=== PATIENT | male | born 1985 | race Caucasian/White ===

== ENCOUNTER 2019-11-19 09:59 | Emergency (ER) | payer OTHER, SELFPAY ==
[2019-11-19] MEDS ORDERED: HYDROCODONE/CHLORPHEN 5 ML/OSYR ONE (10:50)
--- NOTE | 2019-11-19 11:47 | RAD REPORT ---
EXAM DESCRIPTION: RAD - Chest Single View - 11/19/2019 11:34 am CLINICAL HISTORY: COUGH, recent positive COVID test COMPARISON: None TECHNIQUE: AP portable chest image was obtained 11/19/2019 11:34 am . FINDINGS: No focal masslike consolidation. No failure or volume overload. Patient may have some mini mal alveolar opacification in the left lung field. This is a very minimal finding and not definitive for pneumonia or a specific COVID-19 pneumonia. Heart and vasculature are normal. No measurable pleural effusion and no pneumothorax. No acute bony abnormality seen. No acute aortic findings suspected. IMPRESSION: No consolidation or mass. There is questionable minimal alveolar opacification in the mi d left lung field. Chest findings are not yet specific for a COVID-[address] chest imaging can be performed as wa rranted. This would be a more sensitive study for early alveolar pneumonia.
--- NOTE | 2019-11-19 12:03 | ER ---
Nurse's Notes [facility] Name: Yoseph Ryan Age: 34 yrs Sex: Male : 1985 Arrival Date: 11/19/2019 Time: 10:09 Bed 6 Private MD: Diagnosis: Coronavirus infection, unspecified Presentation: 11/18 10:25 Chief complaint: Patient states: Tested positive for COVID on Tuesday. Now reports ss that symptoms are getting worse. Increased SOB on exertion. Coronavirus screen: Patient reports a cough. Patient reports shortness of breath or difficulty breathing. Patient reports a measured and/or subjective temperature greater than 100.4F. Ebola Screen: Patient denies exposure to infectious person. Patient denies travel to an Ebola-affected area in the 21 days before illness onset. Initial Sepsis Screen: Does the patient meet any 2 criteria? HR > 90 bpm. Does the patient have a suspected source of infection? Yes: Productive cough/pneumonia. Risk Assessment: Do you want to hurt yourself or someone else? Patient reports no desire to harm self or others. Onset of symptoms was November 13, 2019. 10:25 Method Of Arrival: Ambulatory ss 10:25 Acuity: RUFINO 3 ss Historical: - Allergies: 10:27 No Known Allergies; ss - Immunization history:: Adult Immunizations up to date. - Social history:: Smoking status: Patient reports use of chewing tobacco. Screenin:45 Abuse screen: Denies threats or abuse. Denies injuries from another. Nutritional iw screening: No deficits noted. Tuberculosis screening: No symptoms or risk factors identified. Fall Risk None identified. Assessment: 10:45 General: Appears in no apparent distress. comfortable, Behavior is calm, cooperative. iw Pain: Denies pain. Neuro: Level of Consciousness is awake, alert, obeys commands, Oriented to person, place, time, situation, Moves all extremities. Full function. Cardiovascular: Patient's skin is warm and dry. Respiratory: Reports cough that is non-productive, Respiratory effort is even, unlabored, Respiratory pattern is regular, symmetrical. Derm: Skin is intact, is healthy with good turgor. Musculoskeletal: Range of motion: intact in all extremities. Vital Signs: 10:25 BP 120 / 78; Pulse 108; Resp 18; Temp 98.5(TE); Pulse Ox 97% on R/A; ss 10:46 BP 165 / 74; Pulse 92; Pulse Ox 97% on R/A; iw 10:49 BP 117 / 85; Pulse 96; Resp 18; Pulse Ox 97% ; sv ED Course: 10:09 Patient arrived in ED. fj1 10:18 Lavon Lopez NP is PHCP. pm1 10:18 Thomas Ybarra MD is Attending Physician. pm1 10:27 Triage completed. ss 10:27 Arm band placed on right wrist. ss 10:31 Vijaya Newton, RN is Primary Nurse. iw 10:45 Patient has correct armband on for positive identification. iw 11:35 Chest Single View XRAY In Process Unspecified. EDMS 12:14 No provider procedures requiring assistance completed. Patient did not have IV access iw during this emergency room visit. Administered Medications: 10:44 Drug: Tussionex Pennkinetic ER 5 ml Route: PO; iw Outcome: 12:02 Discharge ordered by MD. pm1 12:14 Discharged to home ambulatory. iw 12:14 Condition: good 12:14 Discharge instructions given to patient, Instructed on discharge instructions, follow up and referral plans. Demonstrated understanding of instructions, follow-up care, medications, Prescriptions given X 1. 12:15 Patient left the ED. iw Signatures: Dispatcher [employer] EDMS Lori Feldman RN RN Vijaya Newton RN RN Patricia Silva RN RN Lavon Lopez NP HISTORIC PRESERVATIONIST pm1 Ken Rubio fj1
--- NOTE | 2019-11-19 12:03 | EDPHYS ---
Physician Documentation [facility] Name: Yoseph Ryan Age: 34 yrs Sex: Male : 1985 Arrival Date: 11/19/2019 Time: 10:09 Bed 6 Private MD: ED Physician Thomas Ybarra HPI: 11/18 11:48 This 34 yrs old Male presents to ER via Ambulatory with complaints of COVID pm1 POS, SYMPTOMS ARE GETTING WORSE. 11:48 The patient or guardian reports cough, dry. Onset: The symptoms/episode began/occurred pm1 5 day(s) ago. Modifying factors: The symptoms are alleviated by nothing, the symptoms are aggravated by nothing. Associated signs and symptoms: Pertinent negatives: chest pain, ear ache, fever, nausea, sore throat, vomiting. The patient has not experienced similar symptoms in the past. The patient has not recently seen a physician. Patient tested positive for COVID. Patient with onset of cough on Tuesday and was tested on Tuesday. Reported productive cough initially that is now dry. He feels that he is coughing more times. Denies any shortness of breath at rest or exertion. Historical: - Allergies: 10:27 No Known Allergies; ss - Immunization history:: Adult Immunizations up to date. - Social history:: Smoking status: Patient reports use of chewing tobacco. ROS: 11:48 Constitutional: Negative for fever, chills, and weight loss, Eyes: Negative for injury, pm1 pain, redness, and discharge, ENT: Negative for injury, pain, and discharge, Neck: Negative for injury, pain, and swelling, Cardiovascular: Negative for chest pain, palpitations, and edema. 11:48 Abdomen/GI: Negative for abdominal pain, nausea, vomiting, diarrhea, and constipation, Back: Negative for injury and pain, MS/Extremity: Negative for injury and deformity, Skin: Negative for injury, rash, and discoloration, Neuro: Negative for headache, weakness, numbness, tingling, and seizure. 11:48 Respiratory: Positive for cough, Negative for shortness of breath, sputum production, wheezing. Exam: 11:48 Constitutional: This is a well developed, well nourished patient who is awake, alert, pm1 and in no acute distress. Head/Face: Normocephalic, atraumatic. Eyes: Pupils equal round and reactive to light, extra-ocular motions intact. Lids and lashes normal. Conjunctiva and sclera are non-icteric and not injected. Cornea within normal limits. Periorbital areas with no swelling, redness, or edema. ENT: Nares patent. No nasal discharge, no septal abnormalities noted. Tympanic membranes are normal and external auditory canals are clear. Oropharynx with no redness, swelling, or masses, exudates, or evidence of obstruction, uvula midline. Mucous membranes moist. Neck: Trachea midline, no thyromegaly or masses palpated, and no cervical lymphadenopathy. Supple, full range of motion without nuchal rigidity, or vertebral point tenderness. No Meningismus. 11:48 Back: No spinal tenderness. No costovertebral tenderness. Full range of motion. 11:48 Skin: Warm, dry with normal turgor. Normal color with no rashes, no lesions, and no evidence of cellulitis. MS/ Extremity: Pulses equal, no cyanosis. Neurovascular intact. Full, normal range of motion. 11:48 Cardiovascular: Exam negative for acute changes, Rate: normal, Rhythm: regular, Pulses: no pulse deficits are appreciated, Edema: is not appreciated. 11:48 Respiratory: Exam negative for acute changes, respiratory distress, shortness of breath. 11:48 Abdomen/GI: Exam negative for acute changes, Inspection: obese Palpation: abdomen is soft and non-tender, in all quadrants. 11:48 Neuro: Exam negative for acute changes, Orientation: is normal, Motor: is normal, moves all fours. Vital Signs: 10:25 BP 120 / 78; Pulse 108; Resp 18; Temp 98.5(TE); Pulse Ox 97% on R/A; ss 10:46 BP 165 / 74; Pulse 92; Pulse Ox 97% on R/A; iw 10:49 BP 117 / 85; Pulse 96; Resp 18; Pulse Ox 97% ; sv MDM: 10:18 Patient medically screened. pm1 12:01 Data reviewed: vital signs. Data interpreted: Pulse oximetry: on room air is 97 %. pm1 Interpretation: normal. Counseling: I had a detailed discussion with the patient and/or guardian regarding: the historical points, exam findings, and any diagnostic results supporting the discharge/admit diagnosis, radiology results, the need for outpatient follow up, to return to the emergency department if symptoms worsen or persist or if there are any questions or concerns that arise at home. 11/18 10:30 Order name: Chest Single View XRAY; Complete Time: 11:48 pm1 Administered Medications: 10:44 Drug: Tussionex Pennkinetic ER 5 ml Route: PO; iw Disposition: 16:18 Co-signature as Attending Physician, Thomas Ybarra MD. rn Disposition: 11/19/19 12:02 Discharged to Home. Impression: Coronavirus infection, unspecified. - Condition is Stable. - Discharge Instructions: COVID-19. - Prescriptions for Guaifenesin AC 10- 100 mg/5 mL Oral Liquid - take 10 milliliter by ORAL route every 4 hours As needed; 240 milliliter. - Medication Reconciliation Form, Thank You Letter, Antibiotic Education, Prescription Opioid Use form. - Follow up: Emergency Department; When: As needed; Reason: Worsening of condition. Follow up: Private Physician; When: 2 - 3 days; Reason: Recheck today's complaints, Continuance of care, Re-evaluation by your physician. - Problem is new. - Symptoms have improved. Signatures: Dispatcher [employer] Vijaya Chavez RN RN iw Nieto, Roman, MD MD rn Smirch, Shelby, RN RN ss Marinas, Patrick, NP [employer] pm1 Corrections: (The following items were deleted from the chart) 12:15 12:02 11/19/2019 12:02 Discharged to Home. Impression: Coronavirus infection, iw unspecified. Condition is Stable. Forms are Medication Reconciliation Form, Thank You Letter, Antibiotic Education, Prescription Opioid Use. Follow up: Emergency Department; When: As needed; Reason: Worsening of condition. Follow up: Private Physician; When: 2 - 3 days; Reason: Recheck today's complaints, Continuance of care, Re-evaluation by your physician. Problem is new. Symptoms have improved. pm1
[2019-11-19 12:20] VITALS: TEMP 98.5; O2SAT 97
[2019-11-19 12:23] VITALS: BP 117/85
== END 2019-11-19 12:15 | disposition home or self-care (01) ==
LOC: ER 09:59
DX: U07.1 COVID-19 (principal); F17.220 Nicotine dependence, chewing tobacco, uncomplicated
CPT/HCPCS: 71045; 99283